=== PATIENT | male | born 1975 | race Caucasian/White ===

== ENCOUNTER 2020-02-18 20:06 | Emergency (ER) | payer OTHER, BC ==
[2020-02-18 20:46] LABS: APPEARANCE,URINE Cloudy (CLEAR); BILIRUBIN,URINE Negative (NEGATIVE); COLOR,URINE Yellow (YELLOW); GLUCOSE, URINE (UA) Negative (NEGATIVE); KETONES,URINE Negative (NEGATIVE); LEUKOCYTE ESTERASE ,URINE Negative (NEGATIVE); NITRATE,URINE Negative (NEGATIVE); OCCULT BLOOD,URINE Negative (NEGATIVE); PROTEIN,URINE Negative (NEGATIVE)
[2020-02-18 20:53] LABS: BACTERIA,URINE Few /HPF (None Seen); RBC,URINE 0-1 /HPF (0-1); WBC,URINE 0-1 /HPF (0-1)
[2020-02-18 20:55] LABS: MUCUS,URINE Rare LPF (None Seen); SQUAMOUS EPITHELIAL CELL,UR Few /HPF (0-2)
[2020-02-18 21:29] LABS: BASOPHILS % (AUTO) 0.5 % (0.0-5.0); EOSINOPHILS % (AUTO) 1.2 % (0.0-8.0); HEMATOCRIT 42.3 % (42-54); LYMPHOCYTES % (AUTO) 26.6 % (21.0-51.0); MEAN CORPUSCULAR HEMOGLOBIN 28.5 pg (27.0-33.0); MEAN CORPUSCULAR HGB CONC 33.8 g/dL (32.0-36.0); MEAN CORPUSCULAR VOLUME 84.4 fL (79-99); MONOCYTES % (AUTO) 7.9 % (3.0-13.0); NEUTROPHILS % (AUTO) 63.6 % (40.0-77.0); PLATELET COUNT (AUTO) 197 K/uL (130-400); RED BLOOD CELL COUNT(AUTO) 5.01 MIL/uL (4.50-6.20); RED CELL DISTRIBUTION WIDTH 14.1 % (11.0-15.5); WHITE BLOOD COUNT (AUTO) 8.8 K/uL (4.8-10.8)
[2020-02-18 21:39] LABS: INR 0.99 (0.85-1.15); PARTIAL THROMBOPLASTIN TIME 25.2 SEC (26.3-35.5); PROTHROMBIN TIME 10.7 SEC (9.6-11.6)
[2020-02-18 21:44] LABS: CREATININE 1.1 mg/dL (0.5-1.5); POTASSIUM 3.5 mmol/L (3.5-5.1)
[2020-02-18 21:49] LABS: ALBUMIN 4.2 g/dL (3.5-5.0); BILIRUBIN,TOTAL 0.4 mg/dL (0.2-1.0); TOTAL PROTEIN, SERUM 8.3 g/dL (6.0-8.3)
[2020-02-18] MEDS ORDERED: ACETAMINOPHEN 500 MG TABLET ONE (22:59)
[2020-02-18] MEDS ORDERED: KETOROLAC 30MG VIAL (30MG/ML) ONE (22:59)
== END 2020-02-18 23:26 | disposition home or self-care (01) ==
LOC: EDH 20:06
DX: J11.1 Influenza due to unidentified influenza virus with other respiratory manifestations (principal); E86.0 Dehydration; Z20.828 Contact with and (suspected) exposure to other viral communicable diseases; I10 Essential (primary) hypertension
CPT/HCPCS: 36415; 80053; 81001; 82550; 83605; 84484; 85025; 85610; 85730; 87088; 87426; 87804 ×2; 93005; 96374; 99284; J1885; U0003

== ENCOUNTER 2021-11-02 05:30 | Emergency (ER) | payer BC, OTHER ==
[~2021-11-02] VITALS: Ht 182.9 cm; Wt 157.9 kg
[2021-11-02 06:10] LABS: BASOPHILS % (AUTO) 0.4 % (0.0-5.0); EOSINOPHILS % (AUTO) 6.6 % (0.0-8.0); HEMATOCRIT 41.7 % (42-54); LYMPHOCYTES % (AUTO) 20.6 % (21.0-51.0); MEAN CORPUSCULAR HEMOGLOBIN 28.8 pg (27.0-33.0); MEAN CORPUSCULAR HGB CONC 33.3 g/dL (32.0-36.0); MEAN CORPUSCULAR VOLUME 86.3 fL (79-99); MONOCYTES % (AUTO) 7.8 % (3.0-13.0); NEUTROPHILS % (AUTO) 64.1 % (40.0-77.0); PLATELET COUNT (AUTO) 205 K/uL (130-400); RED BLOOD CELL COUNT(AUTO) 4.83 MIL/uL (4.50-6.20); WHITE BLOOD COUNT (AUTO) 9.8 K/uL (4.8-10.8)
[2021-11-02 06:22] LABS: ALBUMIN 3.6 g/dL (3.5-5.0)
[2021-11-02] MEDS ORDERED: SOLU-MEDROL 125MG VIAL IVP SCH (07:25)
[2021-11-02] MEDS ORDERED: IPRATROPIUM/ALBUTEROL SULFATE 3 ML SOLUTION IH SCH (07:25)
[2021-11-02] MEDS ORDERED: IPRATROPIUM/ALBUTEROL SULFATE 3 ML SOLUTION IH ONE (07:34)
[2021-11-02 07:43] LABS: ABG BASE EXCESS 2.6 mmol/L (-2.0-3.0); ABG HCO3 25.8 mmol/L (21.0-28.0); ABG OXYGEN SATURATION 95.4 % (95.0-99.0); ABG PCO2 36 mmHg (35-48)
[2021-11-02] MEDS ORDERED: IOHEXOL 350 MG/ML 100ML INFUS..BTL IV ONE (09:41)
[2021-11-02] MEDS ORDERED: [UNRECOGNIZED DRUG - CODE] PO (11:33)
[2021-11-02 11:57] VITALS: BP 148/89
== END 2021-11-02 12:00 | disposition home or self-care (01) ==
LOC: EDH 05:30
DX: J45.901 Unspecified asthma with (acute) exacerbation (principal); Z20.822 Contact with and (suspected) exposure to COVID-19; I48.91 Unspecified atrial fibrillation; G47.30 Sleep apnea, unspecified
CPT/HCPCS: 99285; 96374; 71270; 71045; 87635; 83735; 84484; 80053; 82803; 85025; 85378; 87040 ×2; 87804 ×2; 83605; 36415; 93005; 36600; 94640; C9803; J2930; Q9967

== ENCOUNTER → 2022-08-14 | Outpatient (CLI) | payer OTHER ==
[~2022-08-14] MED LIST: AMOX-426 PO; APIX5TAB PO; ASPI-1443 PO; BUDE10.2 IH; CHOL500050 PO; FLUT16H NASAL; LORA10TA7 PO; MULT-1192 PO; OMEP40CA21 PO; PRED20TA3 PO; RAMI5CAP66 PO; SOTA80TA PO
[2022-08-14 15:51] LABS: BASOPHILS % (AUTO) 0.4 % (0.0-5.0); EOSINOPHILS % (AUTO) 1.4 % (0.0-8.0); HEMATOCRIT 41.5 % (42-54); LYMPHOCYTES % (AUTO) 25.5 % (21.0-51.0); MEAN CORPUSCULAR HEMOGLOBIN 27.9 pg (27.0-33.0); MONOCYTES % (AUTO) 8.9 % (3.0-13.0); NEUTROPHILS % (AUTO) 63.5 % (40.0-77.0); PLATELET COUNT (AUTO) 220 K/uL (130-400); RED BLOOD CELL COUNT(AUTO) 4.77 MIL/uL (4.50-6.20); RED CELL DISTRIBUTION WIDTH 14.6 % (11.0-15.5); WHITE BLOOD COUNT (AUTO) 7.1 K/uL (4.8-10.8)
== END | disposition home or self-care (01) ==
LOC: DAH 10:00 → EDSTATUS 08-16 15:35
PROVIDERS: ATTEND Surgery
DX: I25.10 Atherosclerotic heart disease of native coronary artery without angina pectoris (principal); D17.21 Benign lipomatous neoplasm of skin and subcutaneous tissue of right arm
CPT/HCPCS: 85025; 87426; 36415; A6260

== ENCOUNTER 2023-04-20 08:35 | Emergency (ER) | payer OTHER ==
[~2023-04-20] VITALS: Ht 185.4 cm; Wt 145.1 kg
[~2023-04-20 08:35] MED LIST changes: -AMOX-426 PO; -BUDE10.2 IH; +BUPR-49 PO; -CHOL500050 PO; -FLUT16H NASAL; -LORA10TA7 PO; +NALT50TA PO; -OMEP40CA21 PO; -PRED20TA3 PO
[2023-04-20 09:09] LABS: BASOPHILS # (AUTO) 0.04 K/uL (0.00-0.20); BASOPHILS % (AUTO) 0.5 % (0.0-5.0); EOSINOPHILS # (AUTO) 0.18 K/uL (0.00-0.70); EOSINOPHILS % (AUTO) 2.3 % (0.0-8.0); HEMATOCRIT 40.3 % (42-54); IMMATURE GRANULOCYTE ABSOLUTE 0.02 K/uL (0-1); LYMPHOCYTES # (AUTO) 1.9 K/uL (1.0-4.8); LYMPHOCYTES % (AUTO) 24.4 % (21.0-51.0); MEAN CORPUSCULAR HEMOGLOBIN 28.8 pg (27.0-33.0); MEAN CORPUSCULAR HGB CONC 33.3 g/dL (32.0-36.0); MEAN CORPUSCULAR VOLUME 86.7 fL (79-99); MONOCYTES # (AUTO) 0.8 K/uL (0.1-1.0); MONOCYTES % (AUTO) 10.1 % (3.0-13.0); NEUTROPHILS # (AUTO) 4.9 K/uL (1.8-7.7); NEUTROPHILS % (AUTO) 62.4 % (40.0-77.0); PLATELET COUNT (AUTO) 162 K/uL (130-400); RED BLOOD CELL COUNT(AUTO) 4.65 MIL/uL (4.50-6.20); RED CELL DISTRIBUTION WIDTH 14.5 % (11.0-15.5); WHITE BLOOD COUNT (AUTO) 7.8 K/uL (4.8-10.8)
[2023-04-20 09:14] LABS: APPEARANCE,URINE CLEAR (CLEAR); BILIRUBIN,URINE NEGATIVE (NEGATIVE); COLOR,URINE YELLOW (YELLOW); GLUCOSE, URINE (UA) NEGATIVE (NEGATIVE); KETONES,URINE NEGATIVE (NEGATIVE); LEUKOCYTE ESTERASE ,URINE NEGATIVE Leu/uL (NEGATIVE); NITRATE,URINE NEGATIVE (NEGATIVE); OCCULT BLOOD,URINE NEGATIVE (NEGATIVE); PH,URINE 6.5 (5.0-8.0); PROTEIN,URINE 10 mg/dL (NEGATIVE); UROBILINOGEN,URINE 0.2 mg/dL (0.2-1.0)
[2023-04-20 09:18] LABS: ADD UA MICROSCOPIC YES
[2023-04-20 09:19] LABS: MUCUS,URINE RARE LPF (None Seen); RBC,URINE 0-1 /HPF (0-1); SQUAMOUS EPITHELIAL CELL,UR RARE /HPF (0-2)
[2023-04-20 09:32] LABS: ALBUMIN 3.5 g/dL (3.5-5.0); BILIRUBIN,TOTAL 0.5 mg/dL (0.2-1.0); POTASSIUM 3.9 mmol/L (3.5-5.1); TOTAL PROTEIN, SERUM 7.4 g/dL (6.0-8.3)
[2023-04-20] MEDS: KETOROLAC 30MG VIAL (30MG/ML) IVP ONE (11:54)
[2023-04-20] MEDS: 0.9%NACL 1000ML 1,000 ML IV ONE (11:54)
[2023-04-20] MEDS ORDERED: IOHEXOL-350 75 ML VIAL IV ONE (11:59)
[2023-04-20 12:53] VITALS: BP 131/98; PULSE 47; RESP 20; O2SAT 98
== END 2023-04-20 13:18 | disposition home or self-care (01) ==
LOC: EDH 08:35
DX: R10.31 Right lower quadrant pain (principal); G89.18 Other acute postprocedural pain; I48.91 Unspecified atrial fibrillation; Z79.899 Other long term (current) drug therapy; Z98.890 Other specified postprocedural states; Z90.49 Acquired absence of other specified parts of digestive tract
CPT/HCPCS: 99285; 74177; 96374; 96361; 80053; 83690; 85025; 81001; 36415; J7030; J1885; Q9967